=== PATIENT | male | born 1980 | race Caucasian/White ===

== ENCOUNTER 2021-05-08 21:57 | Emergency (ER) | payer OTHER ==
[~2021-05-08] VITALS: Ht 175.3 cm; Wt 88.5 kg
[2021-05-08] MEDS ORDERED: PAXIL20 MG (22:08)
== END 2021-05-09 12:07 | disposition home or self-care (01) ==
LOC: ER 21:57
DX: N13.2 Hydronephrosis with renal and ureteral calculous obstruction (principal)